=== PATIENT | female | born 1985 | race Caucasian/White ===

== ENCOUNTER 2017-01-13 13:05 | Emergency (ER) | payer OTHER ==
[~2017-01-13] VITALS: Ht 170.2 cm; Wt 61.7 kg
[~2017-01-13 13:05] MED LIST: KEFLEX500 MG ORAL
[2017-01-13 13:19] VITALS: BP 102/68
--- NOTE | 2017-01-13 13:36 | Emergency Room Report ---
History of Present Illness General Chief Complaint: Eye Problems Source: Patient Present Illness HPI The patient is a 31-year-old female presenting for right eye corneal abrasion sustained yesterday. The patient states that she was at a dance class and scratched her own eye with her fingernail. The patient went to an urgent care and was diagnosed with corneal abrasion. The patient was placed on ofloxacin and told to FU with ophthalmology. The pt has been unable to see meter installer and remover and is worried that this may cause complications. The patient is currently described as a 6/10 dull ache with excessive tearing. Pain does not radiate from the eye. Pain worse with light. Pt denies any other pain including eye discharge, dizziness, blurred vision, N, V, F, chills, UMANZOR Allergies: Coded Allergies: LATEX (Unverified Allergy, Unknown, 09/12/14) Patient History Past Medical History: see triage record Pertinent Family History: none Last Menstrual Period: 12/08/16 Reviewed Nursing Documentation: PMH: Agreed, PSxH: Agreed Nursing Documentation-PMH Past Medical History: No Stated History Review of Systems All Other Systems: negative except mentioned in HPI Physical Exam Vital Signs Date Time Temp Pulse Resp B/P Pulse Ox O2 Delivery O2 Flow Rate FiO2 01/13/17 13:17 98.1 84 16 102/68 97 Room Air Sp02 EP Interpretation: reviewed, normal General Appearance: no apparent distress, alert, GCS 15, non-toxic Head: normocephalic, atraumatic Eyes: right eye photophobia, right eye visual acuity - 20/40, bilateral eye EOMI, bilateral eye PERRL ENT: hearing grossly normal, normal pharynx, no angioedema, normal voice Neck: full range of motion, supple/symm/no masses Musculoskeletal: back normal, gait/station normal, normal range of motion, non- tender Neurologic: alert, oriented x3, responsive, motor strength/tone normal, sensory intact, speech normal Psychiatric: judgement/insight normal, memory normal, mood/affect normal, no suicidal/homicidal ideation Skin: normal color, no rash, warm/dry, well hydrated Lymphatic: no adenopathy Medical Decision Making PA Attestation Dr. Bella is my supervising physician. Patient management was discussed with my supervising physician Diagnostic Impression: Primary Impression: Corneal abrasion ER Course The patient is a 31-year-old female presenting for right eye corneal abrasion sustained yesterday Differential diagnoses considered but not limited to corneal abrasion, allergic conjunctivitis, bacterial conjunctivitis, viral conjunctivitis PE: vitals WNL. NAD Right eye: PERRL. Mild corneal injection. Abrasion seen over superior aspect of cornea. There is excessive tearing. No edema. No other discharge. No hyphema. OD: 20/40 OS: 20/20 Proparacaine is applied for anesthesia the patient is feeling better. A rigid eye shield was placed over the right eye. Patient will be discharged home with ER precautions and will continue to use the ofloxacin as prescribed. Patient will need to see meter installer and remover. Last Vital Signs Date Time Temp Pulse Resp B/P Pulse Ox O2 Delivery O2 Flow Rate FiO2 01/13/17 13:17 98.1 84 16 102/68 97 Room Air Status: improved Disposition: HOME, SELF-CARE Condition: Improved Referrals: EMPLOYEE TH MARTITA HILL (PCP) ANDREA CANO Jan 13, 2017 13:36
[2017-01-13] MEDS ORDERED: Proparacaine 0.5% Opth Soln 15ml RIGHT EYE ONE (13:45)
[2017-01-13 14:20] VITALS: BP 98/62
== END 2017-01-13 14:25 | disposition home or self-care (01) ==
LOC: EMR 13:30
DX: S05.01XA Injury of conjunctiva and corneal abrasion without foreign body, right eye, initial encounter (principal); W22.8XXA Striking against or struck by other objects, initial encounter; Y92.252 Music hall as the place of occurrence of the external cause; Z91.040 Latex allergy status
CPT/HCPCS: 99282